=== PATIENT | male | born 1995 | race Two or more races ===

== ENCOUNTER 2017-05-07 19:35 | Emergency (ER) | payer SELFPAY ==
[~2017-05-07] VITALS: Ht 175.3 cm; Wt 64.2 kg
[2017-05-07 19:38] VITALS: BP 126/72
[2017-05-07] MEDS ORDERED: DIPH,PERTUSS(ACELL),TET VAC/PF 0.5 ML IM-VACC ONE (20:00)
[2017-05-07] MEDS ORDERED: LIDOCAINE 1%, 20ML SQ ONE (20:00)
[2017-05-07] MEDS ORDERED: BACITRACIN ZINC OINT 500U/GM, 0.9 GM ONE (20:54)
== END 2017-05-07 21:03 | disposition home or self-care (01) ==
LOC: ED 20:57
DX: S81.012A Laceration without foreign body, left knee, initial encounter (principal); G89.11 Acute pain due to trauma; W27.0XXA Contact with workbench tool, initial encounter; Y93.89 Activity, other specified; Y92.89 Other specified places as the place of occurrence of the external cause; Y99.0 Civilian activity done for income or pay
CPT/HCPCS: 12001; 90471; 90715; 99283